=== PATIENT | female | born 1985 | race Caucasian/White ===

== ENCOUNTER 2018-09-05 21:56 | Emergency (ER) | payer BC, OTHER ==
[~2018-09-05] VITALS: Ht 172.7 cm; Wt 86.2 kg
--- OUTSIDE RECORDS SUMMARY | 2018-09-05 22:02 | XMS REPORT ---
Author Author NINA Steinberg [facility] Address [address] [place] [address] Care Team Providers Care Printer Slotter Feeder Name Role Phone NINA Steinberg Unavailable PROBLEMS Unknown Problems ALLERGIES ENCOUNTERS IMMUNIZATIONS No Known Immunizations SOCIAL HISTORY No smoking Hx information available REASON FOR VISIT PLAN OF CARE VITAL SIGNS MEDICATIONS RESULTS No Results PROCEDURES No Known procedures INSTRUCTIONS MEDICATIONS ADMINISTERED No Known Medications MEDICAL (GENERAL) HISTORY
--- OUTSIDE RECORDS SUMMARY | 2018-09-05 22:02 | XMS REPORT ---
Author Author ROYCE BELCHER [facility] Address [address] [place] [address] Care Team Providers Care Security Operations Manager Name Role Phone ROYCE BELCHER Unavailable PROBLEMS Unknown Problems ALLERGIES No Known Allergies ENCOUNTERS Encounter Location Date Diagnosis [facility] [address] [facility] [id number] [address] December, spinal headache O89.4 IMMUNIZATIONS No Known Immunizations SOCIAL HISTORY Never Assessed REASON FOR VISIT pt had vaginal delivery on 12/11/2017. then had a spinal block after delivery so she could get her tubes tied. now pt has had a headache since 1430 today. pt reports she has been having these headaches ever since the tubal ligation. she reports this one is the worst. priti, headache is worse when she lays down , pt refusing to take IM zofran 4mg. in agreeance with oral, zofran 8mg ODT et ibuprofen 200mg X 4 PO at this time with [address] pena. 1899 PLAN OF CARE Activity Details Follow Up prn Reason: VITAL SIGNS Height 68 in 2018-01-02 Weight 201.6 lbs 2018-01-02 Temperature 97.6 degrees Fahrenheit 2018-01-02 Heart Rate 84 bpm 2018-01-02 Respiratory Rate 20 2018-01-02 BMI 30.65 kg/m2 2018-01-02 Blood pressure systolic 126 mmHg 2018-01-02 Blood pressure diastolic 76 mmHg 2018-01-02 MEDICATIONS Medication Instructions Dosage Frequency Start Date End Date Duration Status Zofran ODT 8 MG Orally every 8 hours as needed 1 tablet on the tongue and allow to dissolve December, 10 days Active 28-0.8 MG Orally Once a day 1 tablet 24h Active RESULTS No Results PROCEDURES No Known procedures INSTRUCTIONS MEDICATIONS ADMINISTERED No Known Medications MEDICAL (GENERAL) HISTORY Type Description Date Surgical History bilateral tubal ligation 12/11/2017 Hospitalization History post vaginal delivery 12/11/2017
--- NOTE | 2018-09-05 22:07 | ED Upper Extremity ---
General Stated Complaint: R HAND PAIN Source: patient Exam Limitations: no limitations History of Present Illness Date Seen by Provider: Sep 05, 2018 Time Seen by Provider: 22:00 Initial Comments To ER with right hand pain. She tripped over the [place]. Hit her hand on the truck. This occurred about 30 minutes ago. She has pain to the proximal phalanx right ring finger and some bruising and pain over the right fifth MCP joint. Onset: just prior to arrival Severity: moderate Pain/Injury Location: right 4th finger, right 5th finger Method of Injury: fell Modifying Factors: Worse With Movement Allergies and Home Medications Patient Home Medication List Home Medication List Reviewed: Yes Review of Systems Constitutional: see HPI EENTM: see HPI Respiratory: no symptoms reported Cardiovascular: no symptoms reported Genitourinary: no symptoms reported Musculoskeletal: see HPI Skin: no symptoms reported Psychiatric/Neurological: No Symptoms Reported Past Pxvftmp-Ifrcyo-Uhhmqu Hx Patient Social History Recent Foreign Travel: No Contact w/Someone Who Travel: No Physical Exam Vital Signs Vital Signs - First Documented 09/05/18 22:05 Temp 96.8 Pulse 100 Resp 16 B/P (MAP) 158/98 (118) Pulse Ox 100 Capillary Refill : Height, Weight, BMI Height: '" Weight: lbs. oz. kg; BMI Method: General Appearance: WD/WN, no apparent distress HEENT: PERRL/EOMI, normal ENT inspection Neck: non-tender, full range of motion Respiratory: no respiratory distress, no accessory muscle use Shoulder: normal inspection, non-tender Elbow/Forearm: normal inspection, non-tender Wrist: Yes normal inspection, Yes non-tender Hand: Right, ecchymosis (there is some ecchymosis over the dorsal aspect of the right fifth MCP joint. There is tenderness without erythema deformity or ecchymosis over the proximal phalanx right ring finger.) Neurologic/Psychiatric: alert, normal mood/affect, oriented x 3 Skin: normal color, warm/dry Progress/Results/Core Measures Results/Orders My Orders Orders - BENNETT MORA APRN Hand, Right, 3 Views (09/05/18 22:06) Vital Signs/I&O Departure Impression Primary Impression: Contusion of hand Qualified Codes: S60.221A - Contusion of right hand, initial encounter Disposition: 01 HOME, SELF-CARE Condition: Stable Departure-Patient Inst. Decision time for Depature: 22:20 Referrals: NO,LOCAL PHYSICIAN (PCP/Family) Primary Care Physician Patient Instructions: Contusion (DC) Add. Discharge Instructions: 1. Ice to the area, Tylenol and Motrin for pain control. Return to ER for any concerns. BENNETT MORA APRN Sep 05, 2018 22:07
[2018-09-05 22:27] VITALS: BP 158/98
--- NOTE | 2018-09-06 05:45 | Diagnostic Imaging Report ---
INDICATION: Right hand laceration. FINDINGS: 3 views of right hand show no fracture, dislocation or radiopaque foreign object. IMPRESSION: Negative right hand. Dictated by: Dictated on workstation # [id number]
== END 2018-09-05 22:27 | disposition home or self-care (01) ==
LOC: ER 21:59
DX: S60.221A Contusion of right hand, initial encounter (principal); W22.09XA Striking against other stationary object, initial encounter
CPT/HCPCS: 73130

== ENCOUNTER 2021-05-03 12:10 | Emergency (ER) | payer BC, OTHER ==
[~2021-05-03] VITALS: Ht 172.7 cm; Wt 81.8 kg
--- OUTSIDE RECORDS SUMMARY | 2021-05-03 12:15 | XMS REPORT | Clinical Summary ---
Author Author [facility] Organization [facility] Address Unknown Phone Unavailable Care Team Providers Care Automated Weaver Name Role Phone PCP Unavailable Source Comments [facility]) documents [facility] Allergies Not on File Medications Please verify current medications with patient. Not on file Active Problems Not on file Social History Date Tobacco Use Types Packs/Day Years Used Never Assessed Sex Assigned at Date Recorded Not on file Last Filed Vital Signs Not on file Plan of Treatment Health Maintenance Due Date Last Done Comments HPV/Cotest 1984 COVID-19 Vaccine (1) 1996 Cervical Cancer Screening 2005 Pap Smear 2005 Influenza Vaccine (#1) 2021 HPV Vaccine Aged Out No longer eligible based on patient's age to complete this topic Pneumococcal Vaccine: Aged Out No longer eligib le based on patient's age to Pediatrics (0 to 5 Years) complete this topic and At-Risk Patients (6 to 64 Years) Results Not on filefrom Last 3 Months
[2021-05-03 12:30] VITALS: BP 148/90
--- NOTE | 2021-05-03 12:36 | ED Lower Extremity ---
General Stated Complaint: R FOOT DROPPED METER LID Source: patient Exam Limitations: no limitations History of Present Illness Date Seen by Provider: May 03, 2021 Time Seen by Provider: 12:24 Initial Comments This is a 35-year-old female presented to the ER with complaints of right foot pain after dropping a metal water meter on it approximately 2 weeks ago. Past Ndrqzao-Mwnlcw-Myxlhb Hx Seasonal Allergies Seasonal Allergies: No Past Medical History Surgeries: No Respiratory: No Cardiac: No Neurological: No Genitourinary: No Gastrointestinal: No Musculoskeletal: No Endocrine: No HEENT: No Cancer: No Psychosocial: No Integumentary: No Blood Disorders: No Physical Exam Vital Signs Vital Signs - First Documented 05/03/21 12:30 Temp 36.6 Pulse 95 Resp 18 B/P (MAP) 148/90 (109) Pulse Ox 98 Capillary Refill : Height, Weight, BMI Height: 5'8.00" Weight: 190lbs. oz. 86.217631nx; BMI Method:Stated Progress/Results/Core Measures Results/Orders My Orders Orders - ADRIANA SHARPE APRN Foot, Right, 3 View (05/03/21 12:17) Vital Signs/I&O 05/03/21 12:30 Temp 36.6 Pulse 95 Resp 18 B/P (MAP) 148/90 (109) Pulse Ox 98 Departure Impression Primary Impression: Contusion of foot Disposition: 01 HOME, SELF-CARE Condition: Stable/Unchanged Departure-Patient Inst. Decision time for Depature: 13:17 Referrals: NO,LOCAL PHYSICIAN (PCP/Family) Primary Care Physician Patient Instructions: Minor Contusion ED Add. Discharge Instructions: Plan: 1. Wear boot while working to off load pressure on foot. If pain persists desp ite measures follow up with your doctor. 2. Use ice at home 20 minutes at a time for pain. May us Tylenol and Ibuprofen for pain, per package. 3. Return for any new, concerning, or worsening symptoms. ADRIANA SHARPE APRN May 03, 2021 12:36
--- NOTE | 2021-05-03 13:10 | Diagnostic Imaging Report ---
INDICATION: Injury to right foot. AP, oblique, lateral views of the right foot are obtained. FINDINGS: No fracture or acute bony abnormality seen. Joint spaces are unremarkable. IMPRESSION: Negative right foot. Dictated by: Dictated on workstation # [id number]
== END 2021-05-03 13:42 | disposition home or self-care (01) ==
LOC: EDUNIT# 12:10 → ER 12:12
DX: S90.31XA Contusion of right foot, initial encounter (principal); W20.8XXA Other cause of strike by thrown, projected or falling object, initial encounter
CPT/HCPCS: 73630; L2114